=== PATIENT | male | born 1950 | race Caucasian/White ===

== ENCOUNTER 2016-08-08 16:32 | Inpatient (IN) | payer BC ==
[~2016-08-08] VITALS: Ht 182.9 cm; Wt 126.9 kg
[~2016-08-08 16:32] MED LIST: ASPI-110 PO; ENAL20TA PO; METF500T PO; MULT-135 PO; NORC5TAB PO
[2016-08-08 16:41] VITALS: BP 156/86; PULSE 79; RESP 18; TEMP 98
[2016-08-08 16:50] VITALS: BP 156/86; PULSE 83; RESP 18; O2SAT 97
[2016-08-08 17:15] LABS: AUTOMATED NEUTROPHIL # 5.6 TH/MM3 (1.8-7.7); BASOPHIL # 0.1 TH/MM3 (0-0.2); EOSINOPHIL # 0.3 TH/MM3 (0-0.4); EOSINOPHIL % 3.2 % (0.0-4.0); HEMATOCRIT 46.2 % (39.0-51.0); HEMO FLAGS DIFF FINAL; LYMPH % 21.1 % (9.0-44.0); LYMPHOCYTE # 1.8 TH/MM3 (1.0-4.8); MEAN CELL VOLUME 88.9 FL (80.0-100.0); MEAN CORPUSCULAR HEMOGLOBIN 28.9 PG (27.0-34.0); MEAN CORPUSCULAR HGB CONC 32.5 % (32.0-36.0); MONO % 7.8 % (0.0-8.0); NEUT % 66.9 % (16.0-70.0); PLATELET COUNT 144 TH/MM3 (150-450); RED CELL DISTRIBUTION WIDTH 15.2 % (11.6-17.2); WHITE BLOOD COUNT 8.4 TH/MM3 (4.0-11.0)
[2016-08-08] MEDS ORDERED: GLIP5TAB8 PO (17:22)
[2016-08-08] MEDS ORDERED: CARV3.125 PO (17:22)
[2016-08-08 18:01] LABS: BICARBONATE 28.9 MEQ/L (21.0-32.0); POTASSIUM 5.1 MEQ/L (3.5-5.1)
[2016-08-08] MEDS ORDERED: HYDROmorphone HCL PF 1 MG/ML VIAL IV PUSH ONE (18:30)
--- NOTE | 2016-08-08 18:31 | RADRPT ---
EXAM DATE/TIME: 08/08/2016 17:05 [facility] COMPARISON: No previous studies available for comparison. INDICATIONS : Right hip pain, post fall MEDICAL HISTORY : Hypertension. Cardiovascular disease. SURGICAL HISTORY : None. ENCOUNTER: Initial ACUITY: 1 day PAIN SCORE: 10/10 LOCATION: Right hip FINDINGS: There is a mildly displaced intertrochanteric fracture of the proximal right femur. Mild osteoarthrit is at the hips bilaterally. Bones are osteopenic. CONCLUSION: 1. Intertrochanteric fracture proximal right femur. Guy Nowak MD on August 08, 2016 at 18:28 Board Certified Radiologist. This report was verified electronically.
--- NOTE | 2016-08-08 18:32 | RADRPT ---
EXAM DATE/TIME: 08/08/2016 17:07 [facility] COMPARISON: No previous studies available for comparison. INDICATIONS : Right hip pain MEDICAL HISTORY : Hypertension. Cardiovascular disease. SURGICAL HISTORY : None. ENCOUNTER: Initial ACUITY: 1 day PAIN SCORE: 10/10 LOCATION: Right Hip FINDINGS: There is an intertrochanteric fracture of the proximal right femur. There is previous right knee repl acement. Bones are osteopenic. CONCLUSION: 1. Intertrochanteric fracture of the proximal right femur with mild displacement. Guy Nowak MD on August 08, 2016 at 18:29 Board Certified Radiologist. This report was verified electronically.
[2016-08-08 18:34] VITALS: BP 144/79; PULSE 81; RESP 18; O2SAT 97
--- NOTE | 2016-08-08 19:09 | PD ---
HPI Chief Complaint: Hip Injury Time Seen by Provider: 16:49 Travel History International Travel<30 days: No Contact w/Intl Traveler<30days: No Traveled to known affect area: No History of Present Illness HPI Patient is a 65-year-old male who comes in complaining of right hip pain after he fell off a ladder today. He was doing some work and was stepping down off of a 6 foot ladder when he thought he was at the ground, but was not. He fell and landed directly on his right hip. He denies hitting his head. He complains of pain to his right hip, denies any other injuries. He denies any back pain, neck pain, numbness or tingling. He denies any chest pain, belly pain or shortness of breath. PFSH Past Medical History Arthritis: Yes Asthma: No Autoimmune Disease: No Blood Disorders: No Anxiety: No Depression: No Heart Rhythm Problems: No Cancer: No Cardiovascular Problems: No High Cholesterol: No Chemotherapy: No Chest Pain: No Congestive Heart Failure: No COPD: No Cerebrovascular Accident: No Diabetes: Yes Patient Takes Glucophage: Yes Diminished Hearing: No Endocrine: No Gastrointestinal Disorders: No GERD: No Glaucoma: No Genitourinary: No Headaches: No Hepatitis: No Hiatal Hernia: No Hypertension: Yes Immune Disorder: No Kidney Stones: No Musculoskeletal: No Neurologic: No Psychiatric: No Reproductive: No Respiratory: No Immunizations Current: No Migraines: Yes Myocardial Infarction: No Renal Failure: No Seizures: No Sickle Cell Disease: No Sleep Apnea: Yes Thyroid Disease: No Ulcer: No Past Surgical History Abdominal Surgery: Yes (HERNIA X 2, CHOLECYSTECTOMY) AICD: No Appendectomy: No Arteriovenous Shunt: No Cardiac Surgery: No Cholecystectomy: Yes Ear Surgery: No Endocrine Surgery: No Eye Surgery: No Genitourinary Surgery: No Gynecologic Surgery: No Insulin Pump: No Joint Replacement: Yes (BILATERAL KNEES REPLACED) Oral Surgery: Yes (EXTRACTION) Pacemaker: No Thoracic Surgery: No Other Surgery: Yes (HERNIA REPAIR X3 GALLBLADDER) Social History Alcohol Use: No Tobacco Use: No Substance Use: No Allergies-Medications (Allergen,Severity, Reaction): Coded Allergies: No Known Allergies (Unverified , 08/08/16) Reported Meds & Prescriptions Reported Meds & Active Scripts Active Reported Coreg (Carvedilol) 3.125 Mg Tab 3.125 Mg PO BID Glipizide 5 Mg Tab 5 Mg PO DAILY Take 30 minutes before a meal Enalapril (Enalapril Maleate) 20 Mg Tab 20 Mg PO DAILY Multi Vitamin (Multiple Vitamin) 1 Tab Tab 1 Tab PO DAILY Aspirin 81 (Aspirin) 81 Mg Tabdr 81 Mg PO DAILY Review of Systems Except as stated in HPI: all other systems reviewed are Neg General / Constitutional: No: Fever, Chills Eyes: No: Diploplia, Blurred Vision HENT: No: Headaches, Lightheadedness Cardiovascular: No: Chest Pain or Discomfort Respiratory: No: Shortness of Breath Gastrointestinal: No: Nausea, Abdominal Pain Musculoskeletal: Positive: Pain Skin: No Rash, No Change in Pigmentation Neurologic: No: Weakness, Dizziness Physical Exam Narrative GENERAL: Awake and alert, in mild distress due to pain. SKIN: Focused skin assessment warm/dry. HEAD: Atraumatic. Normocephalic. EYES: Pupils equal and round. No scleral icterus. ENT: No nasal bleeding or discharge. Mucous membranes pink and moist. NECK: Trachea midline. No JVD. No cervical spine tenderness. CARDIOVASCULAR: Regular rate and rhythm. No murmur appreciated. No chest wall pain. RESPIRATORY: No accessory muscle use. Clear to auscultation. Breath sounds equal bilaterally. GASTROINTESTINAL: Abdomen soft, non-tender, nondistended. MUSCULOSKELETAL: No obvious deformities. No clubbing. No cyanosis. Tender to palpation of the right hip. Unable to move the right hip due to pain. Pedal pulses intact. No tenderness to the thoracic or lumbar spine. NEUROLOGICAL: Awake and alert. No obvious cranial nerve deficits. Motor grossly within normal limits. Normal speech. PSYCHIATRIC: Appropriate mood and affect; insight and judgment normal. Data Data Last Documented VS Vital Signs Date Time Temp Pulse Resp B/P Pulse Ox O2 Delivery O2 Flow Rate FiO2 08/08/16 18:34 81 18 144/79 97 Room Air 08/08/16 16:41 98.0 Orders Complete Blood Count With Diff (08/08/16 16:49) Basic Metabolic Panel (Bmp) (08/08/16 16:49) Iv Access Insert/Monitor (08/08/16 16:49) Femur (Ap & Lat/2vws) (08/08/16 ) Hip, Uni(Ap&Lat) W Ap Pelvis (08/08/16 ) Hydromorphone Pf Inj (Dilaudid Pf Inj) (08/08/16 18:30) Admit Order (Ed Use Only) (08/08/16 ) Consult Orthopedic (08/08/16 ) Labs Laboratory Tests Test 08/08/16 16:52 White Blood Count 8.4 TH/MM3 Red Blood Count 5.20 MIL/MM3 Hemoglobin 15.0 GM/DL Hematocrit 46.2 % Mean Corpuscular Volume 88.9 FL Mean Corpuscular Hemoglobin 28.9 PG Mean Corpuscular Hemoglobin 32.5 % Concent Red Cell Distribution Width 15.2 % Platelet Count 144 TH/MM3 Mean Platelet Volume 9.6 FL Neutrophils (%) (Auto) 66.9 % Lymphocytes (%) (Auto) 21.1 % Monocytes (%) (Auto) 7.8 % Eosinophils (%) (Auto) 3.2 % Basophils (%) (Auto) 1.0 % Neutrophils # (Auto) 5.6 TH/MM3 Lymphocytes # (Auto) 1.8 TH/MM3 Monocytes # (Auto) 0.7 TH/MM3 Eosinophils # (Auto) 0.3 TH/MM3 Basophils # (Auto) 0.1 TH/MM3 CBC Comment DIFF FINAL Differential Comment Sodium Level 140 MEQ/L Potassium Level 5.1 MEQ/L Chloride Level 105 MEQ/L Carbon Dioxide Level 28.9 MEQ/L Anion Gap 6 MEQ/L Blood Urea Nitrogen 22 MG/DL Creatinine 1.39 MG/DL Estimat Glomerular Filtration 51 ML/MIN Rate Random Glucose 119 MG/DL Calcium Level 8.9 MG/DL [facility] Medical Decision Making Medical Screen Exam Complete: Yes Emergency Medical Condition: Yes Differential Diagnosis Hip fracture versus hip dislocation versus pelvic fracture Narrative Course Patient is a 65-year-old male who comes in complaining of right hip pain after he fell onto his hip from a ladder today. Exam shows pain with movement of the hip. IV established, labs sent. Labs show no acute abnormalities. X-ray shows a fracture of the right hip. Patient given pain medicine. Orthopedics consult it, will perform surgery tomorrow. Patient admitted for further management. Diagnosis Primary Impression: Closed comminuted intertrochanteric fracture of proximal end of right femur Qualified Code: S72.141A - Closed comminuted intertrochanteric fracture of proximal end of right femur, initial encounter Admitting Information Admitting Physician Requests: Admit Scripts Rivaroxaban (Xarelto)10 Mg Tab10 Mg PO DAILY #21 TAB Ref 0 Prov:Joe Arango Jr. 08/09/16 Calcium Carbonate-Vitamin D (Calcium 600+D)600-400 Mg-Unit Tab1 Tab PO BID #60 TAB Ref 2 Prov:Joe Arango Jr. 08/09/16 Hydrocodone-Acetaminophen 7.5-325 mg Tab1 Tab PO Q3H PRN (SEE LABEL COMMENTS) # 60 TAB Prov:Joe Arango Jr. 08/09/16 Ergocalciferol (Drisdol)50,000 Unit Cap50,000 Units PO WEEKLY #7 CAP Prov:Joe Arango Jr. 08/09/16 Condition: Joseline Ramirez MD August 08, 2016 19:09
[2016-08-08] MEDS ORDERED: ACETAMINOPHEN 325 MG TAB PO PRN (19:15)
[2016-08-08] MEDS ORDERED: SENNOSIDES 8.6 MG TAB PO PRN (19:15)
[2016-08-08] MEDS ORDERED: NALOXONE HCL 0.4 MG/ML AMP IV PRN (19:15)
[2016-08-08] MEDS ORDERED: SODIUM CHLORIDE 0.9% FLUSH 10 ML FLUSH IV FLUSH PRN (19:15)
[2016-08-08] MEDS: CARVEDILOL 3.125 MG TAB PO SCH (20:50)
[2016-08-08 21:00] VITALS: BP 151/80; PULSE 75; RESP 18; TEMP 97.6; O2SAT 98
[2016-08-08] MEDS: SODIUM CHLORIDE 0.9% FLUSH 10 ML FLUSH IV FLUSH SCH (21:00)
[2016-08-08] MEDS ORDERED: INSULIN HUMAN REGULAR 1,000 UNITS/10 ML VIAL SQ PRN (21:00)
[2016-08-08] MEDS ORDERED: SODIUM CHLORID 0.9% 500 ML IV PRN (21:00)
[2016-08-08] MEDS ORDERED: POVIDONE IODINE 5% (ANTISEPSIS KIT) 4 APPLICATIONS EACH NARE PRN (21:00)
[2016-08-08] MEDS ORDERED: METOPROLOL TARTRATE 25 MG TAB PO PRN (21:00)
[2016-08-08] MEDS ORDERED: CHLORHEXIDINE GLUCONATE 2 % 1 PACK (2 CLOTHS) TOPICAL PRN (21:00)
[2016-08-08] MEDS ORDERED: LACTATED RINGER'S 1000 ML IV PRN (21:00)
[2016-08-08] MEDS: MORPHINE SULFATE 4 MG/ML INJ IV PUSH PRN (21:09)
--- NOTE | 2016-08-08 22:05 | HHI.HP ---
[facility] Mark Pearl MD Admission Diagnosis Hip fracture Diagnoses: (1) Closed fracture of proximal end of right femur Chief Complaint: fall off a ladder with right hip pain Travel History International Travel<30 Days: No Contact w/Intl Traveler <30 Da: No Traveled to Known Affected Are: No History of Present Illness Mr. Patricio is a 65 year-old male with a history of type 2 diabetes mellitus and hypertension who presented to the emergency room on 08/08/2016 after falling off a ladder with resulting right hip pain. Imaging studies in the emergency room showed right intertrochanteric proximal femur fracture. The patient states he was sent home and climbed up a ladder to water some plants and when he was attempting to come off the ladder he stepped off the wrong while he was still too high up and fell on his right side with subsequent right hip pain. Right hip pain is described as severe, sharp rated 9/10 and somewhat relieved to a 5 out of 10 with IV morphine here at the hospital. He denies any head injury during fall, syncope, dizziness, blurry vision, chest pain or tightness, palpitations, or shortness of breath prior to fall. He takes aspirin 81 mg a day but no other anticoagulants. He denies any nausea , vomiting, diarrhea, dysuria, black or tarry stools, red stools, hematuria, or dysuria. He reports a history of hypertension and diabetes and states his PCP DC'd his metformin about a month ago. There is some confusion by the patient in which he states he no longer has diabetes but is taking Glipizide 2.5 mg in a.m. and in p.m. He denies any history of coronary artery disease, atrial fibrillation, COPD, emphysema, asthma, obstructive sleep apnea (though in the EMR and says he does have BUBBA), CVA, PE, DVT, kidney or liver disease, seizures, thyroid problems, or cancers. He denies any prior history of anesthesia reactions or problems. . Review of Systems Except as stated in HPI: all other systems reviewed are Neg Past Family Social History Past Medical History Hypertension Diabetes . Past Surgical History Hiatal hernia repair 03/2016 Cholecystectomy Bilateral knee replacement . Reported Medications Reported Meds & Active Scripts Active Reported Coreg (Carvedilol) 3.125 Mg Tab 3.125 Mg PO BID Glipizide 5 Mg Tab 2.5 Mg PO DAILY Take 30 minutes before a meal BID Enalapril (Enalapril Maleate) 20 Mg Tab 20 Mg PO DAILY Multi Vitamin (Multiple Vitamin) 1 Tab Tab 1 Tab PO DAILY Aspirin 81 (Aspirin) 81 Mg Tabdr 81 Mg PO DAILY . Allergies: Coded Allergies: No Known Allergies (Unverified , 08/08/16) Active Ordered Medications Current Medications Hydromorphone HCl (Dilaudid Pf Inj) 0.5 mg ONCE ONCE IV PUSH Last administered on 08/08/16 18:31; Start 08/08/16 at 18:30; Stop 08/08/16 at 18:31; Status DC Sodium Chloride (NS Flush) 2 ml UNSCH PRN IV FLUSH FLUSH AFTER USING IV ACCESS ; Start 08/08/16 at 19:15 Sodium Chloride (NS Flush) 2 ml BID IV FLUSH Last administered on 08/08/16 21: 00; Start 08/08/16 at 21:00 Acetaminophen (Tylenol) 650 mg Q4H PRN PO TEMP > 100.4; Start 08/08/16 at 19:15 Ondansetron HCl (Zofran Inj) 4 mg Q6H PRN IVP NAUSEA OR VOMITING; Start at 19:15 Sennosides (Senokot) 17.2 mg Q12H PRN PO CONSTIPATION; Start 08/08/16 at 19:15 Naloxone HCl (Narcan Inj) 0.4 mg UNSCH PRN IV SEE LABEL COMMENTS; Start at 19:15 Carvedilol 3.125 mg 3.125 mg BID PO Last administered on 08/08/16 20:50; Start 08/08/16 at 21:00 Lactated Ringer's 1,000 ml @ 30 mls/hr Q24H PRN IV SEE LABEL COMMENTS; Start at 21:00; Stop 08/11/16 at 20:59 Sodium Chloride (NS 500 ml Inj) 500 ml @ 30 mls/hr [id number] PRN IV SEE LABEL COMMENTS; Start 08/08/16 at 21:00; Stop 08/11/16 at 20:59 Metoprolol Tartrate (Lopressor) 25 mg CLASSIFICATION COUNSELOR PRN PO SEE LABEL COMMENTS; Start 08/08/16 at 21:00; Stop 08/11/16 at 20:59 Povidone Iodine (Betadine 5% Antisepsis Kit) 1 applic CLASSIFICATION COUNSELOR PRN EACH NARE SEE LABEL COMMENTS; Start 08/08/16 at 21:00; Stop 08/11/16 at 20:59 Chlorhexidine Gluconate (Chlorhexidine 2% Cloth) 3 pack CLASSIFICATION COUNSELOR PRN TOPICAL SEE LABEL COMMENTS; Start 08/08/16 at 21:00; Stop 08/11/16 at 20:59 Insulin Human Regular (NovoLIN R INJ) See Protocol Table ... CLASSIFICATION COUNSELOR PRN SQ SEE PROTOCOL TABLE; Start 08/08/16 at 21:00; Stop 08/11/16 at 20:59 Morphine Sulfate (Morphine Inj) 2 mg Q3H PRN IV PUSH pain >5 Last administered on 08/08/16t 21:09; Start 08/08/16 at 21:00 . Family History Sister with heart problems; 50's - needed heart transplant; inhaled ammonia and bleach mixed - [place] and . Social History Tobacco: denies ever smoking Alcohol: denies Illicit Drugs: denies . Physical Exam Vital Signs Vital Signs Date Time Temp Pulse Resp B/P Pulse Ox O2 Delivery O2 Flow Rate FiO2 08/08/16 21:00 97.6 75 18 151/80 98 08/08/16 19:12 18 08/08/16 18:34 81 18 144/79 97 Room Air 08/08/16 16:50 83 18 156/86 97 Room Air 08/08/16 16:41 98.0 79 18 156/86 Physical Exam GENERAL: This is a morbidly obese, pleasant, older male patient, in no apparent distress. SKIN: No rashes, ecchymoses or lesions. Cool and dry. HEAD: Atraumatic. Normocephalic. EYES: No scleral icterus. No injection or drainage. ENT: Nose without bleeding, purulent drainage. NECK: Trachea midline. No JVD or lymphadenopathy. CARDIOVASCULAR: Regular rate and rhythm without murmurs, gallops, or rubs. RESPIRATORY: Clear to auscultation. Breath sounds equal bilaterally. No wheezes , rales, or rhonchi. GASTROINTESTINAL: Abdomen obese with normal bowel sounds, soft, non-tender, nondistended. No guarding. MUSCULOSKELETAL: Extremities without clubbing, cyanosis, or edema. No calf tenderness. Right hip pain with palpation and at rest. NEUROLOGICAL: Awake and alert. Motor and sensory grossly within normal limits. Normal speech. . Laboratory Laboratory Tests Test 08/08/16 16:52 White Blood Count 8.4 Red Blood Count 5.20 Hemoglobin 15.0 Hematocrit 46.2 Mean Corpuscular Volume 88.9 Mean Corpuscular Hemoglobin 28.9 Mean Corpuscular Hemoglobin 32.5 Concent Red Cell Distribution Width 15.2 Platelet Count 144 Mean Platelet Volume 9.6 Neutrophils (%) (Auto) 66.9 Lymphocytes (%) (Auto) 21.1 Monocytes (%) (Auto) 7.8 Eosinophils (%) (Auto) 3.2 Basophils (%) (Auto) 1.0 Neutrophils # (Auto) 5.6 Lymphocytes # (Auto) 1.8 Monocytes # (Auto) 0.7 Eosinophils # (Auto) 0.3 Basophils # (Auto) 0.1 CBC Comment DIFF FINAL Differential Comment Sodium Level 140 Potassium Level 5.1 Chloride Level 105 Carbon Dioxide Level 28.9 Anion Gap 6 Blood Urea Nitrogen 22 Creatinine 1.39 Estimat Glomerular Filtration 51 Rate Random Glucose 119 Calcium Level 8.9 Result Diagram: 08/08/16 1652 08/08/16 1652 Imaging Last Impressions Hip and Pelvis X-Ray 08/08/16 0000 Signed Impressions: Service Date/Time: Monday, August 08, 2016 17:05 - CONCLUSION: 1. Intertrochanteric fracture proximal right femur. Guy Nowak MD Femur X-Ray 08/08/16 0000 Signed Impressions: Service Date/Time: Monday, August 08, 2016 17:07 - CONCLUSION: 1. Intertrochanteric fracture of the proximal right femur with mild displacement. Guy Nowak MD Assessment and Plan Problem List: (1) Closed fracture of proximal end of right femur ICD Code: S72.001A Status: Acute (2) Diabetes mellitus ICD Code: E11.9 Status: Chronic (3) Hypertension ICD Code: I10 Status: Chronic (4) Acute renal failure ICD Code: N17.9 Status: Acute Assessment and Plan Mr. Patricio is a 65 year-old male with a history of type 2 diabetes mellitus and hypertension who presented to the emergency room on 08/08/2016 after falling off a ladder with resulting right hip pain. Imaging studies in the emergency room showed right intertrochanteric proximal femur fracture. Right intertrochanteric proximal femur fracture - consult orthopedics - Morphine 2 mg IV every 3 hours as needed for pain - Nothing by mouth for ORIF in a.m. Type 2 DM - hold home meds for now while nothing by mouth - Initial Accu-Check 118 - Accuchecks AC and HS - notify MD if < 100 or > 250 - We will follow trends and blood glucose and adjust treatment as needed Hypertension - elevated blood pressure on admission likely secondary to pain - continue home Carvedilol and Enalapril with holding parameters - monitor trends in blood pressure and adjust treatments as needed Acute renal failure - Admission BUN 22, creatinine 1.39, estimated GFR 51 which is more than half of what it was in March - D5 half-normal saline at 42 cc per hour for gentle IV fluid hydration - Recheck BMP in a.m. and follow trends DVT prophylaxis - SCDs/TEDs - chemoprophylaxis per orthopedics Written by Arlene Davies, acting as scribe for Dr. Duncan on 08/08/16 at 22:33. This note was transcribed by scribe [ Arlene Davies]. I, Dr. Elenita Duncan personally performed the history, physical exam, and medical decision making; and confirmed the accuracy of the information in the transcribed note. Authenticated by Dr. Elenita Duncan on 08/08/16 at 22:33. Discussed Condition With ER physician, RN, and patient . Physician Certification 2 Midnight Certification Type: Admission for Inpatient Services Order for Inpatient Services The services are ordered in accordance with Medicare regulations or non- Medicare payer requirements, as applicable. In the case of services not specified as inpatient-only, they are appropriately provided as inpatient services in accordance with the 2-midnight benchmark. Estimated LOS (days): 3 days is the estimated time the patient will need to remain in the hospital, assuming treatment plan goals are met and no additional complications. Post-Hospital Plan: Not yet determined Problem Qualifiers (1) Diabetes mellitus: Arlene Davies August 08, 2016 22:05 Elenita Duncan MD Sep 13, 2016 12:03
[2016-08-08] MEDS ORDERED: DEXT 5%-NACL 0.45% 1000 ML INJ 1,000 ML IV SCH (22:45)
[2016-08-09] MEDS ORDERED: MORPHINE SULFATE 4 MG/ML INJ IV PUSH ONE
[2016-08-09 00:20] VITALS: BP 134/75; PULSE 83; RESP 17; TEMP 96.8; O2SAT 96
[2016-08-09] MEDS: MORPHINE SULFATE 4 MG/ML INJ IV PUSH PRN ×2 (00:51→05:30)
[2016-08-09 04:09] LABS: AUTOMATED NEUTROPHIL # 5.9 TH/MM3 (1.8-7.7); BASOPHIL % 0.5 % (0.0-2.0); EOSINOPHIL # 0.2 TH/MM3 (0-0.4); EOSINOPHIL % 2.3 % (0.0-4.0); HEMATOCRIT 43.7 % (39.0-51.0); HEMO FLAGS DIFF FINAL; LYMPH % 18.6 % (9.0-44.0); LYMPHOCYTE # 1.6 TH/MM3 (1.0-4.8); MEAN CELL VOLUME 87.8 FL (80.0-100.0); MEAN CORPUSCULAR HEMOGLOBIN 29.5 PG (27.0-34.0); MEAN CORPUSCULAR HGB CONC 33.6 % (32.0-36.0); MONO % 9.6 % (0.0-8.0); PLATELET COUNT 125 TH/MM3 (150-450); RED BLOOD COUNT 4.97 MIL/MM3 (4.50-5.90); RED CELL DISTRIBUTION WIDTH 15.4 % (11.6-17.2); WHITE BLOOD COUNT 8.6 TH/MM3 (4.0-11.0)
[2016-08-09 04:30] VITALS: BP 148/80; PULSE 69; RESP 17; TEMP 96.6; O2SAT 97
[2016-08-09 04:49] LABS: POTASSIUM 4.1 MEQ/L (3.5-5.1)
--- NOTE | 2016-08-09 06:40 | PD.ORT.PN ---
Subjective Subjective Remarks s/p fall from ladder at home right hip pain. no other complaints Objective Vitals Vital Signs Date Time Temp Pulse Resp B/P Pulse Ox O2 Delivery O2 Flow Rate FiO2 08/09/16 04:30 96.6 69 17 148/80 97 08/09/16 00:20 96.8 83 17 134/75 96 08/08/16 21:00 97.6 75 18 151/80 98 08/08/16 19:12 18 08/08/16 18:34 81 18 144/79 97 Room Air 08/08/16 16:50 83 18 156/86 97 Room Air 08/08/16 16:41 98.0 79 18 156/86 I/O 08/08/16 08/08/16 08/08/16 08/09/16 08/09/16 08/09/16 07:00 15:00 23:00 07:00 15:00 23:00 Intake Total 240 ml Output Total 200 ml Balance 40 ml Intake Oral 240 ml Output Urine Total 200 ml # Bowel Movements 0 Result Diagram: 08/09/16 0331 08/09/16 033 Objective Remarks RLE: +bucks traction. NVI. pain in hip LLE: full motion. no pain. nvi BUE: full motion. no pain. nvi Assessment & Plan Assessment and Plan 1) Right Intertroch Hip Fx -NPO -consents -surgery today Jose Blunt August 09, 2016 06:40
[2016-08-09] MEDS ORDERED: BUPIVACAINE/EPINEPHRINE 0.25% PF 10 ML VIAL ONE (07:03)
[2016-08-09] MEDS ORDERED: ceFAZolin INJ 1,000 MG VIAL ONE (07:03)
[2016-08-09] MEDS ORDERED: VANCOMYCIN HCL 1000 MG VIAL ONE (07:03)
[2016-08-09] MEDS ORDERED: SODIUM CHLOR 0.9% 250 ML INJ 250 ML ONE (07:04)
[2016-08-09] MEDS ORDERED: GENTAMICIN SULFATE 80 MG/2 ML VIAL ONE (07:04)
[2016-08-09] MEDS ORDERED: MIDAZOLAM HCL 2 MG/2 ML VIAL ONE (07:41)
[2016-08-09] MEDS ORDERED: ACETAMINOPHEN 1000 MG/100 ML VIAL IV ONE (07:41)
[2016-08-09] MEDS ORDERED: ONDANSETRON HCL 4 MG/2 ML VIAL ONE (07:41)
[2016-08-09] MEDS ORDERED: fentaNYL CITRATE 250 MCG/5 ML AMP ONE (07:41)
[2016-08-09 07:43] VITALS: BP 143/87; PULSE 73; RESP 19; TEMP 98.8; O2SAT 97
[2016-08-09] MEDS ORDERED: HYDROmorphone HCL PF 2 MG/ML VIAL ONE (07:54)
[2016-08-09] MEDS ORDERED: APREPITANT 40 MG CAP ONE (07:54)
--- NOTE | 2016-08-09 08:32 | MB ---
cc: ALEX GALVEZ DATE OF ADMISSION 08/08/2016 DATE OF CONSULTATION 08/09/2016 REASON FOR CONSULTATION Right hip intertrochanteric fracture. HISTORY Nicolasa is a 65-year-old male who was working on a ladder. He was coming down off a ladder when he missed the bottom step. He fell. He landed on his right hip. He had immediate right hip pain. He was unable to stand or ambulate. He presented to the emergency room where x-rays revealed a right hip intertrochanteric fracture. He denies any hip pain prior to his fall. The pain is worse with movement and is improved with rest. He denies any dizziness, syncope or loss of consciousness. PAST MEDICAL HISTORY ALLERGIES None. MEDICATIONS 1. Coreg. 2. Glipizide. 3. Enalapril. 4. Multivitamin. 5. Aspirin. ILLNESSES 1. Hypertension. 2. Diabetes. SURGERIES 1. Hiatal hernia repair. 2. Cholecystectomy. 3. Bilateral knee replacement. SOCIAL HISTORY The patient denies alcohol, tobacco or drug use. FAMILY HISTORY Positive for a heart problem in a sister which required a heart transplant. REVIEW OF SYSTEMS The patient denies headache, visual changes, neck pain, chest pain, shortness of breath, abdominal pain, nausea, vomiting or recent weight loss. He complains of right hip pain. PHYSICAL EXAMINATION GENERAL: The patient is a pleasant 65-year male in no acute distress. He is awake and alert. He is alert and oriented x 3. He appears well-developed, well-nourished. VITAL SIGNS: Temperature 98.8, pulse 73, respirations 19, blood pressure 143/87, O2 sat 97% on room air. HEAD: The patient is normocephalic. Pupils are equal. NECK: Soft, nontender. Trachea is midline. ABDOMEN: Soft, nontender, nondistended. EXTREMITIES: Examination of the bilateral upper extremities reveals no pain with shoulder, elbow or wrist motion. He has intact sensation in all fingers. He has good capillary refill in all fingers. Skin is intact to both hands. Strength is +5. Radial pulses are palpable. Examination of left leg reveals no pain with hip, knee or ankle motion. Skin is intact. Dorsalis pedis pulses palpable. Sensation intact. Examination of the right leg reveals pain with any hip motion. He has no tenderness around his knee, tibia or ankle. Skin is intact. Dorsalis pedis pulses palpable. X-RAYS X-rays of right hip were reviewed. X-rays reveal a displaced right hip intertrochanteric fracture. IMPRESSION Displaced right hip intertrochanteric fracture. PLAN The treatment options were discussed with the patient. At this point I would recommend right hip reduction, intramedullary nail fixation. The risks of surgery include bleeding, infection, injury to arteries, nerves or blood vessels, nonunion, malunion, painful hardware as well as medical complications including blood clot, stroke, heart attack and . All questions were answered. I will plan on surgery today. A mid-level provider in my office (nurse practitioner or physician perinatal breastfeeding assistant) may see this patient on follow-up visits and continue to implement the objectives of this plan including: Starting or adjusting medications, injections , cast application, orthotics, brace application, physical therapy, radiological studies (including x-ray, MRI, CT, ultrasound, bone scan), vascular studies, neurologic studies, specialist consultation, and proceeding with surgical management, as appropriate. MD MARIIA Cuevas/VALDEZ /8:05 AM /8:25 AM DIONI
[2016-08-09] MEDS ORDERED: SODIUM CHLORIDE 0.9% FLUSH 5 ML FLUSH IVF PRN (08:45)
--- NOTE | 2016-08-09 08:47 | PD.OP ---
cc: Kulwinder Mclaughlin MD Operative Report Date of Surgery: August 09, 2016 Preoperative Diagnosis: Displaced right hip intertrochanteric fracture Postoperative Diagnosis: Procedure: Right hip reduction and intramedullary fixation Anesthesia: Gen. Surgeon: Kulwinder Mclaughlin Severity Of Illness Coordinator(s): QUIN Whitaker PA-C The surgical procedure was assisted by my physician automotive parts counter assistant. My P.A. presence was necessary throughout this case for the manipulation and positioning of the surgical extremity. My P.A. was assisting me throughout the duration of this procedure. The skill set of a physician automotive parts counter assistant was medically necessary to complete this procedure. During the surgical case the surgical technology instructor was working at the back table and the physician automotive parts counter assistant was directly assisting me. Operation and Findings: Implants used: [12]mm 130 Synthes TFNA short troch nail Plan of activity: Weight-bear as tolerated Patient was seen and evaluated preoperatively. The patient has significant hip pain from intertrochanteric hip fracture. The risk and benefits of surgery were discussed in depth with the patient to include bleeding infection nonunion malunion and need for hip replacement painful hardware as well as medical competitions including but not stroke heart attack and . Informed consent was obtained. Operative site was marked. Patient was brought to the operating room and placed on fracture table. IV sedation was administered by anesthesiologist. Timeout procedure was performed. Hip and leg were prepped with alcohol followed by DuraPrep and draped in the usual sterile fashion. IV antibiotics were given prior to incision. Procedure began with reduction of fracture. Traction was applied. The leg was manipulated to achieve reduction. Excellent reduction was achieved. Fluoroscopy was used to confirm reduction. A three inch incision was made proximal to the trochanter. Subcutaneous tissue was dissected bluntly. Guidepin was placed at the tip of the trochanter and advanced into the femoral canal. Fluoroscopy confirmed appropriate guidepin placement. A opening reamer was placed over the guidepin. The Synthes TFNA nail was attached to the insertion handle. Nail was now placed through the tip of the trochanter into the femoral canal. Fluoroscopy confirmed appropriate nail placement. A second incision was made over the lateral thigh. Cannulas were placed through the insertion handle down to the femur. Guidepin was now placed through the femoral nail into the center of the femoral head. Fluoroscopy confirmed appropriate guidepin placement. Screw length was measured. Cannulated drill was placed over the guidepin. Appropriate length lag screw was now placed. Traction was released and compression was applied. The set screw was now tightened in dynamic mode. Using the insertion handle as a guide a distal interlocking screw was drilled and placed. Final fluoroscopy revealed well aligned fracture with well-placed hardware. Incision was closed with 3-0 Vicryl and patrica. Sterile dressings were applied. Patient was awakened and transferred to recovery room. Kulwinder Mclaughlin MD August 09, 2016 08:47
[2016-08-09] MEDS: SODIUM CHLORIDE 0.9% FLUSH 5 ML FLUSH IVF SCH ×2 (09:00→20:04)
[2016-08-09] MEDS: SODIUM CHLORIDE 0.9% FLUSH 10 ML FLUSH IV FLUSH SCH (09:00)
[2016-08-09] MEDS: ENALAPRIL MALEATE 10 MG TAB PO SCH (09:00)
[2016-08-09] MEDS ORDERED: ACETAMINOPHEN/HYDROcodone 325 MG/7.5 MG TAB PO PRN (09:00)
[2016-08-09] MEDS: CARVEDILOL 3.125 MG TAB PO SCH ×2 (09:00→20:04)
[2016-08-09] MEDS ORDERED: DO NOT ADM ANY ANTICOAGULANT DRUGS PRN (09:01)
[2016-08-09] MEDS ORDERED: XARE10TA PO (09:15)
[2016-08-09] MEDS ORDERED: DRIS50002 PO (09:15)
[2016-08-09] MEDS ORDERED: CALCTAB38 PO (09:15)
[2016-08-09] MEDS ORDERED: HYDR-3580 PO (09:15)
[2016-08-09] MEDS ORDERED: WALKER/ADULT/FO1 MIS (09:16)
[2016-08-09] MEDS: CHOLECALCIFEROL (VIT D3) 5000 UNIT CAP PO SCH (10:00)
[2016-08-09] MEDS ORDERED: ERGOCALCIFEROL (VIT D2) 50,000 UNIT CAP PO ONE (10:00)
[2016-08-09] MEDS: CALCIUM/VITAMIN D 250 MG/125 U TAB PO SCH ×3 (10:00→17:07)
[2016-08-09] MEDS ORDERED: ENOXAPARIN SODIUM 30 MG/0.3 ML SYRINGE SQ SCH (10:00)
--- NOTE | 2016-08-09 11:17 | EKG ---
Date Performed: 08/08/2016 Time Performed: 21:18:28 PTAGE: 65 years EKG: Sinus rhythm WITH SINUS ARRHYTHMIA RIGHT BUNDLE BRANCH BLOCK ABNORMAL ECG PREVIOUS TRACING : 03/21/2016 01.33 DOCTOR: Tr Zurita Interpretating Date/Time 08/09/2016 11:14:29
[2016-08-09 11:35] VITALS: BP 133/73; PULSE 75; RESP 19; TEMP 97.3; O2SAT 94
[2016-08-09] MEDS ORDERED: PROPOFOL 200 MG/20 ML AMP IV ONE (12:00)
[2016-08-09] MEDS ORDERED: NEOSTIGMINE 3 MG/3 ML SYR IV ONE (12:00)
[2016-08-09] MEDS: ACETAMINOPHEN/HYDROcodone 325 MG/7.5 MG TAB PO PRN ×2 (12:51→21:41)
[2016-08-09 16:00] VITALS: BP 141/69; PULSE 87; RESP 19; TEMP 98.4; O2SAT 95
--- NOTE | 2016-08-09 17:37 | RADRPT ---
EXAM DATE/TIME: 08/09/2016 08:40 [place] COMPARISON: FEMUR RIGHT (AP & LAT/2VWS), August 08, 2016, 17:07. INDICATIONS : Right hip fracture repair with trochanteric nail. OR. MEDICAL HISTORY : Hypertension. Cardiovascular disease. SURGICAL HISTORY : None. ENCOUNTER: Initial ACUITY: 1 day PAIN SCORE: Non-responsive. LOCATION: Right hip FINDINGS: A two view examination of the right hip was performed. An intertrochanteric fracture of the right hip was stabilized with a trochanteric nail. The fracture fragments are satisfactory aligned. CONCLUSION: Satisfactory appearance of the right hip status post ORIF with a trochanteric nail. Emil Villaseñor MD on August 09, 2016 at 17:35 Board Certified Radiologist. This report was verified electronically.
[2016-08-09 20:05] VITALS: BP 131/76; PULSE 80; RESP 18; TEMP 97.5; O2SAT 95
--- NOTE | 2016-08-09 23:07 | HHI.PR ---
Subjective Remarks Patient was seen this afternoon. Follow up for right hip ORIF. Patient is sitting in his chair, no acute concerns. Pain well controlled. No fever, chills. Objective Vitals Vital Signs Date Time Temp Pulse Resp B/P Pulse Ox O2 Delivery O2 Flow Rate FiO2 08/09/16 20:05 97.5 80 18 131/76 95 08/09/16 16:00 98.4 87 19 141/69 95 08/09/16 11:35 97.3 75 19 133/73 94 08/09/16 10:15 98.5 61 16 143/77 94 Room Air 08/09/16 10:00 64 16 147/77 97 Nasal Cannula 3 08/09/16 09:45 65 15 152/79 95 Nasal Cannula 3 08/09/16 09:30 66 14 150/72 98 Nasal Cannula 4 08/09/16 09:15 68 13 159/82 97 Nasal Cannula 4 08/09/16 09:05 98.1 70 12 165/81 95 Nasal Cannula 4 08/09/16 07:43 98.8 73 19 143/87 97 08/09/16 04:30 96.6 69 17 148/80 97 08/09/16 00:20 96.8 83 17 134/75 96 I/O 08/08/16 08/08/16 08/08/16 08/09/16 08/09/16 08/09/16 07:00 15:00 23:00 07:00 15:00 23:00 Intake Total 240 ml 1200 ml 480 ml Output Total 200 ml 575 ml 150 ml 350 ml Balance 40 ml -575 ml 1050 ml 130 ml Intake Oral 240 ml 200 ml 480 ml IV Total 100 ml Other 900 ml Output Urine Total 200 ml 575 ml 50 ml 350 ml Estimated Blood Loss 100 ml # Voids 1 # Bowel Movements 0 0 Result Diagram: 08/09/16 0331 08/09/16 0331 Imaging Last Impressions Hip X-Ray 08/09/16 0000 Signed Impressions: Service Date/Time: Tuesday, August 09, 2016 08:40 - CONCLUSION: Satisfactory appearance of the right hip status post ORIF with a trochanteric nail. Emil Villaseñor MD Hip and Pelvis X-Ray 08/08/16 0000 Signed Impressions: Service Date/Time: Monday, August 08, 2016 17:05 - CONCLUSION: 1. Intertrochanteric fracture proximal right femur. Guy Nowak MD Femur X-Ray 08/08/16 0000 Signed Impressions: Service Date/Time: Monday, August 08, 2016 17:07 - CONCLUSION: 1. Intertrochanteric fracture of the proximal right femur with mild displacement. Guy Nowak MD Objective Remarks GENERAL: Alert, NAD SKIN: Warm and dry. HEAD: Normocephalic. EYES: No scleral icterus. No injection or drainage. NECK: Supple, trachea midline. No JVD or lymphadenopathy. CARDIOVASCULAR: Regular rate and rhythm without murmurs, gallops, or rubs. RESPIRATORY: Breath sounds equal bilaterally. No accessory muscle use. GASTROINTESTINAL: Abdomen soft, non-tender, nondistended. MUSCULOSKELETAL: No cyanosis, or edema. BACK: Nontender without obvious deformity. No CVA tenderness. Procedures 08/09/2016 Right hip reduction and intramedullary fixation A/P Problem List: (1) Closed fracture of proximal end of right femur ICD Code: S72.001A Status: Acute (2) Diabetes mellitus ICD Code: E11.9 Status: Chronic (3) Hypertension ICD Code: I10 Status: Chronic (4) Acute renal failure ICD Code: N17.9 Status: Acute Assessment and Plan Mr. Patricio is a 65 year-old male with a history of type 2 diabetes mellitus and hypertension who presented to the emergency room on 08/08/2016 after falling off a ladder with resulting right hip pain. Imaging studies in the emergency room showed right intertrochanteric proximal femur fracture. Right intertrochanteric proximal femur fracture - s/p right hip ORIF. - Continue [place], Morphine for Pain. - PRN senokot and Milk of Mag for bowel regimen. Type 2 DM - Takes Glipizide 5mg Qday. - Currently blood glucose well controlled. Goal Blood glucose 140-180. Hypertension - Currently normotensive. - continue home Carvedilol and Enalapril with holding parameters - monitor trends in blood pressure and adjust treatments as needed Acute kidney injury - Admission BUN 22, creatinine 1.39, estimated GFR 51. - Improved to Creatinine 1.05, eGFR 71. Full code. Lovenox to start on 08/10/2016. Problem Qualifiers (1) Diabetes mellitus: Jian Kellogg DO August 09, 2016 23:07
[2016-08-10] VITALS (7 sets, daily range): BP systolic 114–156; BP diastolic 67–85; PULSE 74–97; RESP 17–20; TEMP 97–99.4; O2SAT 95–98
--- NOTE | 2016-08-10 07:10 | PD.ORT.PN ---
Subjective Subjective Remarks POD 1 s/p IMN right hip doing well. pain controlled. out of bed with therapy yesterday to chair. Objective Vitals Vital Signs Date Time Temp Pulse Resp B/P Pulse Ox O2 Delivery O2 Flow Rate FiO2 08/10/16 04:36 97.0 74 17 144/85 97 08/10/16 00:25 97.5 79 20 130/81 98 08/09/16 20:05 97.5 80 18 131/76 95 08/09/16 16:00 98.4 87 19 141/69 95 08/09/16 11:35 97.3 75 19 133/73 94 08/09/16 10:15 98.5 61 16 143/77 94 Room Air 08/09/16 10:00 64 16 147/77 97 Nasal Cannula 3 08/09/16 09:45 65 15 152/79 95 Nasal Cannula 3 08/09/16 09:30 66 14 150/72 98 Nasal Cannula 4 08/09/16 09:15 68 13 159/82 97 Nasal Cannula 4 08/09/16 09:05 98.1 70 12 165/81 95 Nasal Cannula 4 08/09/16 07:43 98.8 73 19 143/87 97 I/O 08/09/16 08/09/16 08/09/16 08/10/16 08/10/16 08/10/16 07:00 15:00 23:00 07:00 15:00 23:00 Intake Total 1200 ml 480 ml 240 ml Output Total 575 ml 150 ml 350 ml 700 ml Balance -575 ml 1050 ml 130 ml -460 ml Intake Oral 200 ml 480 ml 240 ml IV Total 100 ml Other 900 ml Output Urine Total 575 ml 50 ml 350 ml 700 ml Stool Total 0 ml Estimated Blood Loss 100 ml # Voids 1 # Bowel Movements 0 Result Diagram: 08/09/16 03308/09/16 033 Objective Remarks RLE: dressings clean and dry. intact. NVI LLE: full motion. no pain. nvi BUE: full motion. no pain. nvi Assessment & Plan Assessment and Plan 1) Right Intertroch Hip Fx s/p IMN - POD 1 -WBAT -dressing changes POD 2 -work with therapy today, if doing well, plan for home with [facility] tomorrow -f/u with John or DANIEL in 2 weeks Jose Blunt August 10, 2016 07:10
--- NOTE | 2016-08-10 07:11 | HHI.FF ---
Face to Face Verification Diagnosis: (1) Closed comminuted intertrochanteric fracture of proximal end of right femur Physical Therapy Gait training Hip: Hip fracture, Protocol: Right, Progress to weight bearing Right LE Weight Bearing: WB as tolerated Nursing Dressing Changes: Daily dressing change, Xeroform, Coverderm/Primapore I have seen patient Nicolasa Obrien Jr Sheng on 08/10/16. My clinical findings support the need for the requested home health care services because: Ltd mobility - disease progression I certify that my clinical findings support that this patient is homebound because: Post-op weakness Jose Blunt August 10, 2016 07:11
[2016-08-10 07:38] LABS: HEMATOCRIT 39.2 % (39.0-51.0); REVIEW FLAG FINAL
[2016-08-10] MEDS: SODIUM CHLORIDE 0.9% FLUSH 5 ML FLUSH IVF SCH ×2 (09:00→19:59)
[2016-08-10] MEDS: MORPHINE SULFATE 4 MG/ML INJ IV PUSH PRN ×2 (09:17→12:36)
[2016-08-10] MEDS: MAGNESIUM HYDROXIDE SUSP 30 ML CUP PO PRN (09:17)
[2016-08-10] MEDS: CALCIUM/VITAMIN D 250 MG/125 U TAB PO SCH ×3 (09:18→18:32)
[2016-08-10] MEDS: CHOLECALCIFEROL (VIT D3) 5000 UNIT CAP PO SCH (09:18)
[2016-08-10] MEDS: ENALAPRIL MALEATE 10 MG TAB PO SCH (09:18)
[2016-08-10] MEDS: CARVEDILOL 3.125 MG TAB PO SCH ×2 (09:18→19:59)
[2016-08-10] MEDS: ENOXAPARIN SODIUM 30 MG/0.3 ML SYRINGE SQ SCH ×2 (09:19→19:59)
[2016-08-10] MEDS ORDERED: SOD PHOSPHATE/SOD BIPHOSPHATE (ADULT) ENEMA 133ML RECTAL PRN (09:30)
[2016-08-10] MEDS ORDERED: BISACODYL 10 MG SUPP RECTAL PRN (09:30)
--- NOTE | 2016-08-10 09:47 | HHI.PR ---
Subjective Remarks Follow up for right hip ORIF. Patient complains of significant pain when he ambulates. However at rest he reports minimal pain. No fever or chills. Objective Vitals Vital Signs Date Time Temp Pulse Resp B/P Pulse Ox O2 Delivery O2 Flow Rate FiO2 08/10/16 04:36 97.0 74 17 144/85 97 08/10/16 00:25 97.5 79 20 130/81 98 08/09/16 20:05 97.5 80 18 131/76 95 08/09/16 16:00 98.4 87 19 141/69 95 08/09/16 11:35 97.3 75 19 133/73 94 08/09/16 10:15 98.5 61 16 143/77 94 Room Air 08/09/16 10:00 64 16 147/77 97 Nasal Cannula 3 08/09/16 09:45 65 15 152/79 95 Nasal Cannula 3 I/O 08/09/16 08/09/16 08/09/16 08/10/16 08/10/16 08/10/16 07:00 15:00 23:00 07:00 15:00 23:00 Intake Total 1200 ml 480 ml 240 ml Output Total 575 ml 150 ml 350 ml 700 ml Balance -575 ml 1050 ml 130 ml -460 ml Intake Oral 200 ml 480 ml 240 ml IV Total 100 ml Other 900 ml Output Urine Total 575 ml 50 ml 350 ml 700 ml Stool Total 0 ml Estimated Blood Loss 100 ml # Voids 1 # Bowel Movements 0 Result Diagram: 08/10/16 0641 08/09/16 0331 Imaging Last Impressions Hip X-Ray 08/09/16 0000 Signed Impressions: Service Date/Time: Tuesday, August 09, 2016 08:40 - CONCLUSION: Satisfactory appearance of the right hip status post ORIF with a trochanteric nail. Emil Villaseñor MD Hip and Pelvis X-Ray 08/08/16 0000 Signed Impressions: Service Date/Time: Monday, August 08, 2016 17:05 - CONCLUSION: 1. Intertrochanteric fracture proximal right femur. Guy Nowak MD Femur X-Ray 08/08/16 0000 Signed Impressions: Service Date/Time: Monday, August 08, 2016 17:07 - CONCLUSION: 1. Intertrochanteric fracture of the proximal right femur with mild displacement. Guy Nowak MD Objective Remarks GENERAL: Alert, NAD SKIN: Warm and dry. HEAD: Normocephalic. EYES: No scleral icterus. No injection or drainage. NECK: Supple, trachea midline. No JVD or lymphadenopathy. CARDIOVASCULAR: Regular rate and rhythm without murmurs, gallops, or rubs. RESPIRATORY: Breath sounds equal bilaterally. No accessory muscle use. GASTROINTESTINAL: Abdomen soft, non-tender, nondistended. MUSCULOSKELETAL: No cyanosis, or edema. BACK: Nontender without obvious deformity. No CVA tenderness. Procedures 08/09/2016 Right hip reduction and intramedullary fixation A/P Problem List: (1) Closed fracture of proximal end of right femur ICD Code: S72.001A Status: Acute (2) Diabetes mellitus ICD Code: E11.9 Status: Chronic (3) Hypertension ICD Code: I10 Status: Chronic (4) Acute renal failure ICD Code: N17.9 Status: Acute Assessment and Plan Mr. Patricio is a 65 year-old male with a history of type 2 diabetes mellitus and hypertension who presented to the emergency room on 08/08/2016 after falling off a ladder with resulting right hip pain. Imaging studies in the emergency room showed right intertrochanteric proximal femur fracture. Right intertrochanteric proximal femur fracture - s/p right hip ORIF. - Continue [place], Morphine for Pain. - PRN senokot and Milk of Mag for bowel regimen. Add Dulcolax suppository and Fleet enema when necessary. - Discharge with home health probably on 08/11/2016. Type 2 DM - Takes Glipizide 5mg Qday. - will discontinue accucheck. Blood glucose has been in the low 100s.Highest was 157. - Patient will likely not require Glipizide 5mg Qday. Will check HbA1C. - May benefit from Metformin. Creatinine is 1.05 with eGFR 71. Would recommend Metformin 500mg BID on discharge. Hypertension - Currently normotensive. - continue home Carvedilol and Enalapril with holding parameters - monitor trends in blood pressure and adjust treatments as needed Acute kidney injury - Admission BUN 22, creatinine 1.39, estimated GFR 51. - Improved to Creatinine 1.05, eGFR 71. Full code. Lovenox Discharge plan: Discharge with home health probably on 08/11/2016. Problem Qualifiers (1) Diabetes mellitus: Jian Kellogg DO August 10, 2016 9:47 am
[2016-08-10] MEDS: ACETAMINOPHEN/HYDROcodone 325 MG/7.5 MG TAB PO PRN ×5 (10:39→23:05)
[2016-08-10 15:49] LABS: HEMOGLOBIN A1a 1.2 %; HEMOGLOBIN A1b 1.8 %; HEMOGLOBIN Ao 84.5 %; HEMOGLOBIN LA1C 2.4 %; HEMOGLOBIN P3 5.7 %
[2016-08-11 04:30] VITALS: BP 143/80; PULSE 112; RESP 18; TEMP 99.6; O2SAT 95
[2016-08-11] MEDS: ACETAMINOPHEN/HYDROcodone 325 MG/7.5 MG TAB PO PRN ×3 (04:53→12:07)
--- NOTE | 2016-08-11 06:35 | PD.ORT.PN ---
Subjective Subjective Remarks POD 2 s/p IMN right hip doing well. pain controlled. out of bed with therapy yesterday to chair. Objective Vitals Vital Signs Date Time Temp Pulse Resp B/P Pulse Ox O2 Delivery O2 Flow Rate FiO2 08/11/16 04:30 99.6 112 18 143/80 95 08/10/16 23:15 99.4 97 18 128/67 95 08/10/16 20:25 98.7 87 17 136/71 96 08/10/16 16:00 97.7 93 18 114/69 97 08/10/16 12:00 98.9 86 18 140/80 96 08/10/16 08:00 97.6 78 18 156/82 98 I/O 08/10/16 08/10/16 08/10/16 08/11/16 08/11/16 08/11/16 07:00 15:00 23:00 07:00 15:00 23:00 Intake Total 240 ml 1080 ml Output Total 700 ml 1050 ml Balance -460 ml 30 ml Intake Oral 240 ml 1080 ml Output Urine Total 700 ml 1050 ml Stool Total 0 ml # Bowel Movements 0 Result Diagram: 08/10/16 0641 08/09/16 0331 Objective Remarks RLE: dressings clean and dry. intact. NVI LLE: full motion. no pain. nvi BUE: full motion. no pain. nvi Assessment & Plan Assessment and Plan 1) Right Intertroch Hip Fx s/p IMN - POD 2 -WBAT -dressing changes POD 2 -work with therapy today, if doing well, plan for home with [facility] tomorrow -plan for DC tomorrow -f/u with John or DANIEL in 2 weeks Jose Blunt August 11, 2016 06:35
[2016-08-11 08:01] VITALS: BP 140/80; PULSE 90; RESP 20; TEMP 97.3; O2SAT 97
[2016-08-11] MEDS: CHOLECALCIFEROL (VIT D3) 5000 UNIT CAP PO SCH (08:57)
[2016-08-11] MEDS: CALCIUM/VITAMIN D 250 MG/125 U TAB PO SCH ×3 (08:57→17:33)
[2016-08-11] MEDS: ENALAPRIL MALEATE 10 MG TAB PO SCH (08:57)
[2016-08-11] MEDS: ENOXAPARIN SODIUM 30 MG/0.3 ML SYRINGE SQ SCH ×2 (08:58→19:46)
[2016-08-11] MEDS: SODIUM CHLORIDE 0.9% FLUSH 5 ML FLUSH IVF SCH ×2 (08:58→19:46)
[2016-08-11] MEDS: CARVEDILOL 3.125 MG TAB PO SCH ×2 (08:58→19:46)
--- NOTE | 2016-08-11 09:18 | HHI.PR ---
Subjective Remarks Follow up for right hip ORIF. Mr. Patricio is doing well. No fever, chills. Objective Vitals Vital Signs Date Time Temp Pulse Resp B/P Pulse Ox O2 Delivery O2 Flow Rate FiO2 08/11/16 08:01 97.3 90 20 140/80 97 08/11/16 04:30 99.6 112 18 143/80 95 08/10/16 23:15 99.4 97 18 128/67 95 08/10/16 20:25 98.7 87 17 136/71 96 08/10/16 16:00 97.7 93 18 114/69 97 08/10/16 12:00 98.9 86 18 140/80 96 I/O 08/10/16 08/10/16 08/10/16 08/11/16 08/11/16 08/11/16 06:59 14:59 22:59 06:59 14:59 22:59 Intake Total 240 ml 1080 ml 240 ml Output Total 700 ml 1050 ml Balance -460 ml 30 ml 240 ml Intake Oral 240 ml 1080 ml 240 ml Output Urine Total 700 ml 1050 ml Stool Total 0 ml # Voids 2 # Bowel Movements 0 0 Result Diagram: 08/10/16 0641 08/09/16 0331 Imaging Last Impressions Hip X-Ray 08/09/16 0000 Signed Impressions: Service Date/Time: Tuesday, August 09, 2016 08:40 - CONCLUSION: Satisfactory appearance of the right hip status post ORIF with a trochanteric nail. Emil Villaseñor MD Hip and Pelvis X-Ray 08/08/16 0000 Signed Impressions: Service Date/Time: Monday, August 08, 2016 17:05 - CONCLUSION: 1. Intertrochanteric fracture proximal right femur. Guy Nowak MD Femur X-Ray 08/08/16 0000 Signed Impressions: Service Date/Time: Monday, August 08, 2016 17:07 - CONCLUSION: 1. Intertrochanteric fracture of the proximal right femur with mild displacement. Guy Nowak MD Objective Remarks GENERAL: Alert, NAD SKIN: Warm and dry. HEAD: Normocephalic. EYES: No scleral icterus. No injection or drainage. NECK: Supple, trachea midline. No JVD or lymphadenopathy. CARDIOVASCULAR: Regular rate and rhythm without murmurs, gallops, or rubs. RESPIRATORY: Breath sounds equal bilaterally. No accessory muscle use. GASTROINTESTINAL: Abdomen soft, non-tender, nondistended. MUSCULOSKELETAL: No cyanosis, or edema. BACK: Nontender without obvious deformity. No CVA tenderness. Procedures 08/09/2016 Right hip reduction and intramedullary fixation A/P Problem List: (1) Closed fracture of proximal end of right femur ICD Code: S72.001A Status: Acute (2) Diabetes mellitus ICD Code: E11.9 Status: Chronic (3) Hypertension ICD Code: I10 Status: Chronic (4) Acute renal failure ICD Code: N17.9 Status: Acute Assessment and Plan Mr. Patricio is a 65 year-old male with a history of type 2 diabetes mellitus and hypertension who presented to the emergency room on 08/08/2016 after falling off a ladder with resulting right hip pain. Imaging studies in the emergency room showed right intertrochanteric proximal femur fracture. Right intertrochanteric proximal femur fracture - s/p right hip ORIF. - Continue [place], Morphine for Pain. - PRN senokot and Milk of Mag for bowel regimen. Add Dulcolax suppository and Fleet enema when necessary. - Discharge with home health probably on 08/12/2016. Type 2 DM - Takes Glipizide 5mg Qday. - will discontinue accucheck. Blood glucose has been in the low 100s.Highest was 157. - Patient will likely not require Glipizide 5mg Qday. HbA1C 5.6. - Would benefit from Metformin. Creatinine is 1.05 with eGFR 71. Would recommend Metformin 500mg BID on discharge. Hypertension - Currently normotensive. - continue home Carvedilol and Enalapril with holding parameters - monitor trends in blood pressure and adjust treatments as needed Acute kidney injury - Admission BUN 22, creatinine 1.39, estimated GFR 51. - Improved to Creatinine 1.05, eGFR 71. Full code. Lovenox Problem Qualifiers (1) Diabetes mellitus: Jian Kellogg DO August 11, 2016 09:18
[2016-08-11] MEDS: ONDANSETRON HCL 4 MG/2 ML VIAL IVP PRN ×3 (09:52→20:45)
[2016-08-11 12:01] VITALS: O2SAT 97
[2016-08-11 12:10] VITALS: BP 134/71; PULSE 84; RESP 18; TEMP 98.1; O2SAT 97
[2016-08-11 16:50] VITALS: BP 135/82; PULSE 84; RESP 18; TEMP 97.2; O2SAT 96
[2016-08-11] MEDS: MAGNESIUM HYDROXIDE SUSP 30 ML CUP PO PRN (19:48)
[2016-08-11 20:00] VITALS: BP 131/85; PULSE 94; RESP 22; TEMP 96.3; O2SAT 96
[2016-08-12] VITALS: BP 140/79; PULSE 96; RESP 18; TEMP 98.3; O2SAT 96
[2016-08-12 04:00] VITALS: BP 144/83; PULSE 95; RESP 18; TEMP 98.1; O2SAT 97
[2016-08-12 08:00] VITALS: BP 133/73; PULSE 90; RESP 20; TEMP 99; O2SAT 96
[2016-08-12] MEDS: ACETAMINOPHEN/HYDROcodone 325 MG/7.5 MG TAB PO PRN ×2 (08:05→14:43)
[2016-08-12] MEDS: ENOXAPARIN SODIUM 30 MG/0.3 ML SYRINGE SQ SCH (08:05)
[2016-08-12] MEDS: CARVEDILOL 3.125 MG TAB PO SCH (08:07)
[2016-08-12] MEDS: ENALAPRIL MALEATE 10 MG TAB PO SCH (08:07)
[2016-08-12] MEDS: SODIUM CHLORIDE 0.9% FLUSH 5 ML FLUSH IVF SCH (08:07)
[2016-08-12] MEDS: CALCIUM/VITAMIN D 250 MG/125 U TAB PO SCH ×2 (08:07→14:43)
[2016-08-12] MEDS: CHOLECALCIFEROL (VIT D3) 5000 UNIT CAP PO SCH (08:07)
--- NOTE | 2016-08-12 10:02 | PD.ORT.PN ---
Subjective Subjective Remarks Resting comfortably. Has had difficulty ambulating Objective Vitals Vital Signs Date Time Temp Pulse Resp B/P Pulse Ox O2 Delivery O2 Flow Rate FiO2 08/12/16 09:05 18 08/12/16 08:00 99.0 90 20 133/73 96 08/12/16 04:00 98.1 95 18 144/83 97 08/12/16 00:00 98.3 96 18 140/79 96 08/11/16 20:00 96.3 94 22 131/85 96 08/11/16 16:50 97.2 84 18 135/82 96 08/11/16 12:10 98.1 84 18 134/71 97 08/11/16 12:01 97 21 I/O 08/11/16 08/11/16 08/11/16 08/12/16 08/12/16 08/12/16 06:59 14:59 22:59 06:59 14:59 22:59 Intake Total 240 ml 1080 ml 480 ml 480 ml Output Total 800 ml Balance 240 ml 1080 ml -320 ml 480 ml Intake Oral 240 ml 1080 ml 480 ml 480 ml Output Urine Total 800 ml # Voids 2 4 2 # Bowel Movements 0 1 2 Result Diagram: 08/10/16 0641 08/09/16 0331 Objective Remarks RLE: dressings clean and dry. intact. NVI LLE: full motion. no pain. nvi BUE: full motion. no pain. nvi Assessment & Plan Assessment and Plan 1) Right Intertroch Hip Fx s/p IMN - POD 3 -WBAT -dressing changes -work with therapy today, discharge to rehabilitation if continuing to have difficulty ambulating -Lovenox Incentive spirometry Orthopedic cleared for discharge to rehabilitation -f/u with John or DANIEL in 2 weeks Joe Arango Jr. August 12, 2016 10:02
--- NOTE | 2016-08-12 11:37 | HHI.DS ---
Discharge Summary Admission Date August 08, 2016 at 7:09 pm Discharge Date: August 12, 2016 Admitting Diagnosis Hip fracture (1) Closed fracture of proximal end of right femur ICD Code: S72.001A Diagnosis: Principal (2) Hypertension ICD Code: I10 Diagnosis: Principal (3) Acute renal failure ICD Code: N17.9 Procedures 08/09/2016 Right hip reduction and intramedullary fixation Brief History - From Admission Mr. Patricio is a 65 year-old male with a history of type 2 diabetes mellitus and hypertension who presented to the emergency room on 08/08/2016 after falling off a ladder with resulting right hip pain. Imaging studies in the emergency room showed right intertrochanteric proximal femur fracture. The patient states he was sent home and climbed up a ladder to water some plants and when he was attempting to come off the ladder he stepped off the wrong while he was still too high up and fell on his right side with subsequent right hip pain. Right hip pain is described as severe, sharp rated 9/10 and somewhat relieved to a 5 out of 10 with IV morphine here at the hospital. He denies any head injury during fall, syncope, dizziness, blurry vision, chest pain or tightness, palpitations, or shortness of breath prior to fall. He takes aspirin 81 mg a day but no other anticoagulants. He denies any nausea , vomiting, diarrhea, dysuria, black or tarry stools, red stools, hematuria, or dysuria. He reports a history of hypertension and diabetes and states his PCP DC'd his metformin about a month ago. There is some confusion by the patient in which he states he no longer has diabetes but is taking Glipizide 2.5 mg in a.m. and in p.m. He denies any history of coronary artery disease, atrial fibrillation, COPD, emphysema, asthma, obstructive sleep apnea (though in the EMR and says he does have BUBBA), CVA, PE, DVT, kidney or liver disease, seizures, thyroid problems, or cancers. He denies any prior history of anesthesia reactions or problems. . CBC/BMP: 08/10/16 0641 08/09/16 0331 Imaging Last Impressions Hip X-Ray 08/09/16 0000 Signed Impressions: Service Date/Time: Tuesday, August 09, 2016 08:40 - CONCLUSION: Satisfactory appearance of the right hip status post ORIF with a trochanteric nail. Emil Villaseñor MD Hip and Pelvis X-Ray 08/08/16 0000 Signed Impressions: Service Date/Time: Monday, August 08, 2016 17:05 - CONCLUSION: 1. Intertrochanteric fracture proximal right femur. Guy Nowak MD Femur X-Ray 08/08/16 0000 Signed Impressions: Service Date/Time: Monday, August 08, 2016 17:07 - CONCLUSION: 1. Intertrochanteric fracture of the proximal right femur with mild displacement. Guy Nowak MD PE at Discharge GENERAL: Alert, NAD SKIN: Warm and dry. HEAD: Normocephalic. EYES: No scleral icterus. No injection or drainage. NECK: Supple, trachea midline. No JVD or lymphadenopathy. CARDIOVASCULAR: Regular rate and rhythm without murmurs, gallops, or rubs. RESPIRATORY: Breath sounds equal bilaterally. No accessory muscle use. GASTROINTESTINAL: Abdomen soft, non-tender, nondistended. MUSCULOSKELETAL: No cyanosis, or edema. BACK: Nontender without obvious deformity. No CVA tenderness. Pt update on day of discharge Mr. Patricio is doing well. No acute concerns. Denies any chest pain, SOB, fever, chills. Hospital Course Mr. Patricio is a 65 year-old male with a history of type 2 diabetes mellitus and hypertension who presented to the emergency room on 08/08/2016 after falling off a ladder with resulting right hip pain. Imaging studies in the emergency room showed right intertrochanteric proximal femur fracture. Right intertrochanteric proximal femur fracture - s/p right hip ORIF. - Continue [place], Morphine for Pain. - PRN senokot and Milk of Mag for bowel regimen. Add Dulcolax suppository and Fleet enema when necessary. Type 2 DM - Takes Glipizide 5mg Qday at home. - HbA1C 5.6. - Would benefit from Metformin. Creatinine is 1.05 with eGFR 71. Would recommend Metformin 500mg BID on discharge. - Discussed at length with patient. He wants to discontinue all his diabetic meds and does not want to start Metformin for now. - He plans to check his blood glucose. If it is not well controlled, he would take Metformin. Hypertension - continue home Carvedilol and Enalapril with holding parameters Acute kidney injury - Admission BUN 22, creatinine 1.39, estimated GFR 51. - Improved to Creatinine 1.05, eGFR 71. Xarelto given for 21 days upon discharge for DVT prevention. Pt Condition on Discharge: Good Discharge Disposition: Discharge to SNF Discharge Time: > 30 minutes Discharge Instructions DIET: Follow Instructions for: Heart Healthy Diet Activities you can perform: Regular-No Restrictions Follow up Referrals: Orthopedics - 2 Weeks @ [facility] with Kulwinder Lopez MD New Medications: Calcium Carbonate-Vitamin D (Calcium 600+D) 600-400 Mg-Unit Tab 1 TAB PO BID Calcium Supplement #60 Ref 2 TAB Rivaroxaban (Xarelto) 10 Mg Tab 10 MG PO DAILY Blood Clot Prevention #21 Ref 0 TAB Walker/Adult/Folding (Walker/Adult/Folding) 1 Mis Mis 1 EA .ROUTE DIRECTED #1 Ref 0 EA Ergocalciferol (Drisdol) 50,000 Unit Cap 48426 UNITS PO WEEKLY Nutritional Supplement #7 CAP Hydrocodone-Acetaminophen (Hydrocodone-Acetaminophen) 7.5-325 mg Tab 1 TAB PO Q3H PRN SEE LABEL COMMENTS #60 TAB Continued Medications: Aspirin DR (Aspirin 81) 81 Mg Tabdr 81 MG PO DAILY Ref 0 TAB Carvedilol (Coreg) 3.125 Mg Tab 3.125 MG PO BID #60 Ref 0 TAB Enalapril (Enalapril) 20 Mg Tab 20 MG PO DAILY Blood Pressure Management Ref 0 TAB Multiple Vitamin (Multi Vitamin) 1 Tab Tab 1 TAB PO DAILY TAB Discontinued Medications: Glipizide (Glipizide) 5 Mg Tab 5 MG PO DAILY Take 30 minutes before a meal Blood Sugar Management #30 Ref 0 TAB Jian Kellogg DO August 12, 2016 11:36
[2016-08-12 14:00] VITALS: BP 130/80; PULSE 90; RESP 20; TEMP 98.7; O2SAT 97
[2016-08-12 16:00] VITALS: BP 145/70; PULSE 90; RESP 20; TEMP 98.2; O2SAT 97
== END 2016-08-12 16:42 | DRG 481 ==
LOC: NEPC 16:32 → NEDA 19:09 → N06A 20:30
PROVIDERS: ADMIT Hospitalist; ATTEND Hospitalist
PROC: 0QS6XZZ Reposition Right Upper Femur, External Approach (ICD-10-PCS; 2016-08-09)
PROC: 0QH606Z Insertion of Intramedullary Internal Fixation Device into Right Upper Femur, Open Approach (ICD-10-PCS; principal; 2016-08-09 07:55)
DX: S72.141A Displaced intertrochanteric fracture of right femur, initial encounter for closed fracture (principal); N17.9 Acute kidney failure, unspecified; W11.XXXA Fall on and from ladder, initial encounter; E66.01 Morbid (severe) obesity due to excess calories; Z68.37 Body mass index [BMI] 37.0-37.9, adult; I10 Essential (primary) hypertension; E11.9 Type 2 diabetes mellitus without complications; Z79.84 Long term (current) use of oral hypoglycemic drugs; Z79.82 Long term (current) use of aspirin; Z96.653 Presence of artificial knee joint, bilateral
CPT/HCPCS: 73502; 73552; 76000; 80048; 82306; 82948; 83036; 85014; 85018; 85025; 86850; 86900; 86901; 93005; 96374; C1713; J0131; J0690; J1170; J1580; J1650; J2250; J2270; J2405; J2710; J3010; J3370; J7050; J8501; L1830